=== PATIENT | female | born 1955 | race African-American/Black ===

== ENCOUNTER 2019-04-13 19:56 | Emergency (ER) | payer BC, OTHER ==
--- NOTE | 2019-04-13 20:36 | PDOC ---
Rapid Medical Evaluation Time Seen by Provider: 04/13/19 20:34 Medical Evaluation: 04/13/19 20:34 HPI: Swollen feet with blisters x 3 weeks PE: Blisters anterior aspect of L ankle and lower leg minimal B ankle swelling ORDERS: Nothing Discharge Disposition - Diagnosis Foot swelling - Referrals - Patient Instructions - Post Discharge Activity
[2019-04-13 20:39] VITALS: PULSE 83; TEMP 97.9; BMI 35.9
--- NOTE | 2019-04-13 22:21 | PDOC ---
*Physical Exam - Vital Signs Last Vital Signs Temp Pulse Resp BP Pulse Ox 97.9 F 83 20 189/99 H 100 04/13/19 20:35 04/13/19 20:35 04/13/19 20:35 04/13/19 20:35 04/13/19 20:35 Medical Decision Making - Medical Decision Making 04/13/19 22:21 Patient seen by the advanced practice provider under my direct supervision. Ancillary testing reviewed as necessary. I agree with plan as outlined by the advanced practice provider. *DC/Admit/Observation/Transfer Diagnosis at time of Disposition: Cellulitis Qualifiers: Site of cellulitis: extremity Site of cellulitis of extremity: lower extremity Laterality: unspecified laterality Qualified Code(s): L03.119 - Cellulitis of unspecified part of limb - Discharge Dispostion Disposition: HOME Condition at time of disposition: Fair - Prescriptions Prescriptions: Cephalexin Monohydrate [Keflex -] 500 mg PO Q6H #28 capsule - Referrals Referrals: Sea Milton MD [Primary Care Provider] - - Patient Instructions Additional Instructions: Take Keflex 500 mg 4 times a day for the next 7 days Finish all antibiotics even if you feel better. Apply warm compresses to affected areas as needed. Continue previously prescribed steroids. Return to emergency department for any worsening pain, drainage, or any other concerns. Thank you very much for choosing us to provide your emergent health care needs. - Post Discharge Activity
--- NOTE | 2019-04-13 22:41 | PDOC ---
History of Present Illness - General Chief Complaint: Edema Stated Complaint: ANKLE SWELLING BILAT Time Seen by Provider: 04/13/19 20:34 History Source: Patient Exam Limitations: No Limitations - History of Present Illness Initial Comments: 04/13/19 22:36 HISTORY OF PRESENT ILLNESS: This 63-year-old otherwise healthy woman who presents emergency department for evaluation of bilateral leg swelling over the past 3 weeks. Patient reports 3 weeks ago she was babysitting her neighbor's son who she believed had bugs. She noted some insect bites in bilateral antecubital and to the tops of both feet. Patient reports she developed some swelling and redness to bilateral lower extremities for which she was evaluated at urgent care center and told she had histamine reaction to a bug bite. Patient was placed on a Medrol dosepak the treat the swelling. Patient reports her right leg has improved facet on her left leg and was concerned when the symptoms do not resolve. Patient was seen by her primary doctor today for the first time in 2 years was promptly referred to the emergency department for evaluation. Patient reports a recent bus trip to [place] 10 days ago. She denies any fevers, chills, chest pain, shortness of breath. No recent travel or sick contacts. PAST MEDICAL HISTORY: Denies past medical history SURGICAL HISTORY: Denies ALLERGIES: No known drug allergies REVIEW OF SYSTEMS General/Constitutional: Denies fever or chills. Denies weakness, weight change. HEENT: Denies change in vision. Denies ear pain or discharge. Denies sore throat. Cardiovascular: Denies chest pain or shortness of breath. Respiratory: Denies cough, wheezing, or hemoptysis. Gastrointestinal: Denies nausea, vomiting, diarrhea or constipation. Denies rectal bleeding. Genitourinary: Denies dysuria, frequency, or change in urination. Musculoskeletal: see HPI Skin and breasts: Denies rash or easy bruising. Neurologic: Denies headache, vertigo, loss of consciousness, or loss of sensation. Psychiatric: Denies depression or anxiety. Endocrine: Denies increased thirst. Denies abnormal weight change. Hematologic/Lymphatic: Denies anemia, easy bleeding, or history of blood clots. Allergic/Immunologic: Denies hives or skin allergy. Denies latex allergy. PHYSICAL EXAM General Appearance: Well-appearing, appropriately dressed. No apparent distress , no intoxication. Respiratory/Chest: Lungs CTAB. No shortness of breath, chest tenderness, respiratory distress, accessory muscle use. No crackles, rales, rhonchi, stridor , wheezing, dullness Cardiovascular: RRR. S1, S2. No JVD, murmur, bradycardia, tachycardia. Vascular Pulses: Dorsalis-Pedis (R): 2+, Dorsalis-Pedis (L): 2+ Lymphatic: No adenopathy, tenderness. Musculoskeletal/Extremities: FROM of all extremities, normal capillary refill. Pelvis Stable. No CVA tenderness. Bilateral lower extremities erythematous and swollen extending from the knees distally. 2+ pedal edema present bilaterally with left worse than right. Patient with 1 fluid-filled blister present to the dorsum of the left foot. Other blisters spontaneously deroofed and are no longer present. Neurologic: backbreaker II-XII intact. Fully oriented, alert. Appropriate mood/affect. Motor strength 5/5. No appreciable EOM palsy, facial droop or sensory deficit. Past History - Past Medical History Allergies/Adverse Reactions: Allergies Allergy/AdvReac Type Severity Reaction Status Date / Time No Known Allergies Allergy Verified 04/13/19 20:34 Home Medications: Ambulatory Orders Cephalexin Monohydrate [Keflex -] 500 mg PO Q6H #28 capsule 04/14/19 Cancer: No Cardiac Disorders: No CVA: No COPD: No CHF: No HTN: Yes - Suicide/Smoking/Psychosocial Hx Smoking History: Never smoked *Physical Exam - Vital Signs Last Vital Signs Temp Pulse Resp BP Pulse Ox 97.9 F 83 20 189/99 H 100 04/13/19 20:35 04/13/19 20:35 04/13/19 20:35 04/13/19 20:35 04/13/19 20:35 ED Treatment Course - RADIOLOGY Radiology Studies Ordered: Category Date Time Status DUPLEX VASCUL US-2LEGS [US] Stat Ultrasound 04/13/19 22:35 Ordered Medical Decision Making - Medical Decision Making 04/13/19 22:40 A/P: 63-year-old woman with bilateral lower extremity swelling Swelling is likely due to histamine reaction from a bug bit currently being treated by [facility]. Steroids Given patient has recently taken a bus trip to [place] I will get bilateral duplex Dopplers to rule out DVT. The symptoms persisted for 3 weeks I will treat for cellulitis if Dopplers are negative. 04/14/19 01:53 Ultrasound as read by imaging transactional paralegal: No evidence of DVT bilateral lower extremity is. No popliteal cysts bilaterally I will discharge the patient home with prescription for Keflex to treat cellulitis. *DC/Admit/Observation/Transfer Diagnosis at time of Disposition: Cellulitis Qualifiers: Site of cellulitis: extremity Site of cellulitis of extremity: lower extremity Laterality: unspecified laterality Qualified Code(s): L03.119 - Cellulitis of unspecified part of limb - Discharge Dispostion Disposition: HOME Condition at time of disposition: Fair Decision to Admit order: No - Prescriptions Prescriptions: Cephalexin Monohydrate [Keflex -] 500 mg PO Q6H #28 capsule - Referrals Referrals: Sea Milton MD [Primary Care Provider] - - Patient Instructions Additional Instructions: Take Keflex 500 mg 4 times a day for the next 7 days Finish all antibiotics even if you feel better. Apply warm compresses to affected areas as needed. Continue previously prescribed steroids. Return to emergency department for any worsening pain, drainage, or any other concerns. Thank you very much for choosing us to provide your emergent health care needs. - Post Discharge Activity
[2019-04-14 01:19] VITALS: BP 149/81
== END 2019-04-14 01:58 | disposition home or self-care (01) ==
LOC: JER 19:56
DX: L03.116 Cellulitis of left lower limb (principal); L03.115 Cellulitis of right lower limb; I10 Essential (primary) hypertension
CPT/HCPCS: 93970-TC; 99282-25